=== PATIENT | female | born 1960 | race Caucasian/White ===

== ENCOUNTER 2017-06-12 20:13 | Inpatient (IN) | payer OTHER ==
[~2017-06-12] VITALS: Ht 157.5 cm; Wt 41.4 kg
[2017-06-12 20:36] LABS: BASOPHIL 0.5 % (0-2); EOSINOPHIL 6.5 % (0-5); HCT 41.3 % (37.0-47.0); HGB 13.4 g/dl (12.5-16.0); LYMPHOCYTE 21.2 % (15-48); MCH 31.3 pg (25.0-31.0); MCHC 32.4 g/dL (32.0-36.0); MCV 96.5 fL (78.0-100.0); MONOCYTE 5.5 % (0-12); MPV 10.2 fL (6.0-9.5); NEUTROPHIL 66.3 % (41-80); PLT 358 K/uL (150-400); RBC 4.28 M/uL (4.20-5.40); RDW 13.1 % (11.5-14.0); WBC 14.9 K/uL (4.0-10.5)
[2017-06-12 20:51] LABS: LACTIC ACID 1.4 mmol/L (0.5-2.2)
[2017-06-12 20:54] LABS: ALBUMIN 4.4 g/dL (3.5-5.0); BILIRUBIN - TOTAL 0.3 mg/dL (0.1-1.0); CREATININE 0.6 mg/dL (0.5-1.0); GLOBULIN (CALCULATION) 2.9 g/dL (2.2-4.2); POTASSIUM 3.9 mmol/L (3.5-5.1); TOTAL PROTEIN 7.3 g/dL (6.4-8.3)
[2017-06-12 20:55] LABS: CKMB 2.81 ng/mL (0.97-4.94); TROPONIN T < 0.010 ng/mL
[2017-06-13 03:01] LABS: CKMB 3.62 ng/mL (0.97-4.94); TROPONIN T < 0.010 ng/mL
--- NOTE | 2017-06-13 06:37 | NUR ---
0615: AFTER USING BEDPAN, PT STARTED C/O CHEST PAIN, BURNING IN NATURE, EXTENDS INTO RIGHT ARM AND SHOULDER WITH ASSOSCIATED NAUSEA. EKG OBTAINED, NO ABNORMALITIES NOTED OTHER THAN RATE 103. 2 PREVIOUS SETS CARDIAC ENZYMES NEGATIVE, NEXT SET DUE 0825. ASSISTED PT TO SIT UP IN BED, PAIN WORSE WITH DEEP BREATHS AND COUGHING. PAIN AND NAUSEA SUBSIDED ON THEIR OWN WIHTOUT ANY MEDS OR FURTHER INTERVENTIONS. VSS, HR 105 ON MONITOR. WILL CONT. TO MONITOR CLOSELY.
[2017-06-13 08:30] LABS: BASOPHIL 0 % (0-2); EOSINOPHIL 0 % (0-5); HCT 36.7 % (37.0-47.0); HGB 11.8 g/dl (12.5-16.0); LYMPHOCYTE 7.2 % (15-48); MCHC 32.2 g/dL (32.0-36.0); MCV 96.3 fL (78.0-100.0); MONOCYTE 0.4 % (0-12); MPV 9.9 fL (6.0-9.5); NEUTROPHIL 92.4 % (41-80); PLT 281 K/uL (150-400); RBC 3.81 M/uL (4.20-5.40); WBC 7.4 K/uL (4.0-10.5)
[2017-06-13 08:48] LABS: CREATININE 0.5 mg/dL (0.5-1.0); POTASSIUM 4.1 mmol/L (3.5-5.1)
[2017-06-13 08:49] LABS: CKMB 3.71 ng/mL (0.97-4.94); TROPONIN T < 0.010 ng/mL
[2017-06-13 13:09] LABS: CKMB 4.16 ng/mL (0.97-4.94); TROPONIN T < 0.010 ng/mL
--- NOTE | 2017-06-13 13:59 | NUR ---
06/13/17 AT 1235 PT CALLED OUT FOR NURSE, WHEN I ENTERED THE ROOM PT WAS C/O CHEST PAIN THAT WAS RADIATING DOWN BOTH ARMS, PAIN WAS A 10/10, PT STATES PAIN WAS LIKE A BURNING SENSATION IN HER CHEST. MD NOTIFIED, ORDERED TO GIVE 0.5PO ATIVAN AT THIS TIME, PT APPEARED TO BE ANXIOUS AND STATED "I NEED MY ATIVAN" WHEN I WENT BACK INTO THE ROOM TO GIVE THE ATIVAN PT WAS NAUSEOUS AND VOIMITING, MD NOTIFIED, EKG AND STAT ENZYMES ORDERED, EKG REVEALED ST DEPRESSION AND APPEARED TO BE ISCHEMIC. AT 1240 1 SL NITRO WAS GIVEN TO THE PT, AT 1242 SHE REPORTED HER CHEST PAIN WAS A 2/10 AND AT 1243 THE CHEST PAIN WAS GONE. AT 1242 5MG OF IV LOPRESSOR WAS GIVEN PER MD ORDER. PTS HR AT THIS TIME WAS 120 WITH BP 171/89. NITRO GTT STARTED AT 1250. PT TRANSFERED TO ICU. PLACED ON DIET TECH, PT REMAINED CHEST PAIN FREE, VITALS STABLE AT THIS TIME, ANOTHER EKG OBTAINED AT [address] DEPRESSION.
[2017-06-13 19:39] LABS: TROPONIN T 0.017 ng/mL
[2017-06-13 19:40] LABS: CKMB 6.57 ng/mL (0.97-4.94)
[2017-06-14 01:13] LABS: TROPONIN T 0.027 ng/mL
[2017-06-14 01:17] LABS: CKMB 6.13 ng/mL (0.97-4.94)
[2017-06-15 05:34] LABS: BASOPHIL 0 % (0-2); EOSINOPHIL 0 % (0-5); HCT 29.3 % (37.0-47.0); HGB 9.6 g/dl (12.5-16.0); MCH 31.7 pg (25.0-31.0); MCHC 32.8 g/dL (32.0-36.0); MCV 96.7 fL (78.0-100.0); MONOCYTE 6.1 % (0-12); MPV 10.4 fL (6.0-9.5); NEUTROPHIL 83.9 % (41-80); PLT 257 K/uL (150-400); RBC 3.03 M/uL (4.20-5.40); RDW 13.2 % (11.5-14.0)
[2017-06-15 05:35] LABS: WBC 19.9 K/uL (4.0-10.5)
[2017-06-15 05:51] LABS: CREATININE 0.5 mg/dL (0.5-1.0); MAGNESIUM 1.94 mg/dL (1.40-2.10)
[2017-06-16 05:32] LABS: BASOPHIL 0 % (0-2); EOSINOPHIL 0.5 % (0-5); HCT 31.8 % (37.0-47.0); HGB 10.3 g/dl (12.5-16.0); LYMPHOCYTE 21.8 % (15-48); MCH 30.5 pg (25.0-31.0); MCHC 32.4 g/dL (32.0-36.0); MCV 94.1 fL (78.0-100.0); MONOCYTE 6.1 % (0-12); MPV 10.7 fL (6.0-9.5); NEUTROPHIL 71.6 % (41-80); PLT 258 K/uL (150-400); RBC 3.38 M/uL (4.20-5.40); RDW 13.2 % (11.5-14.0); WBC 12.8 K/uL (4.0-10.5)
[2017-06-16 05:48] LABS: INR 1.06 (0.9-1.2); PROTHROMBIN TIME 12.9 SECONDS (11.4-13.2); PTT 28.9 SECONDS (24.3-32.1)
[2017-06-16 05:58] LABS: CREATININE 0.6 mg/dL (0.5-1.0); MAGNESIUM 2.06 mg/dL (1.40-2.10); POTASSIUM 3.3 mmol/L (3.5-5.1)
--- NOTE | 2017-06-16 10:38 | NUR ---
PT BEING TRANSFERED TO NUCLEAR TEST TECHNICIAN VIA EMS AT THIS TIME. PTS VITAL SIGNS STABLE NO DISTRESS NOTED.
== END 2017-06-16 11:00 | disposition other institution (70) | DRG 189 ==
LOC: FER 20:13 → FTCU 22:15 → FICU 06-13 12:48 → FTCU 06-15 07:50
PROVIDERS: Emergency Medicine Emergency Medical Services; ADMIT Internal Medicine
DX: J96.21 Acute and chronic respiratory failure with hypoxia (principal); R64 Cachexia; I24.9 Acute ischemic heart disease, unspecified; Z99.81 Dependence on supplemental oxygen; J44.0 Chronic obstructive pulmonary disease with (acute) lower respiratory infection; I20.0 Unstable angina; J44.1 Chronic obstructive pulmonary disease with (acute) exacerbation; Z68.1 Body mass index [BMI] 19.9 or less, adult; J96.22 Acute and chronic respiratory failure with hypercapnia; I10 Essential (primary) hypertension; R00.0 Tachycardia, unspecified; K21.9 Gastro-esophageal reflux disease without esophagitis; Z88.6 Allergy status to analgesic agent; Z88.5 Allergy status to narcotic agent; Z79.01 Long term (current) use of anticoagulants; Z56.0 Unemployment, unspecified; Z82.3 Family history of stroke; Z83.3 Family history of diabetes mellitus; F41.9 Anxiety disorder, unspecified; J20.9 Acute bronchitis, unspecified
CPT/HCPCS: 36415; 36600; 71010; 80048; 80053; 80061; 82550; 82553; 82803; 83605; 83735; 84484; 85025; 85379; 85610; 85730; 87040; 87070; 87184; 87205; 93005; 94010; 94640; 94660; 94761; C9113; J0456; J1956; J2060; J2405; J2930